=== PATIENT | male | born 1975 | race Caucasian/White ===

== ENCOUNTER 2023-08-27 12:52 | Outpatient (CLI) | payer BC, SELFPAY ==
--- NOTE | ~2023-08-27 | CT_ITS ---
CT of the Abdomen and Pelvis: Indication: Inguinal hernia Technique: 2.5 mm axial scans were obtained through the abdomen and pelvis following intravenous adm inistration of 100 cc of Omnipaque 350. Dose reduction technique was used on this scan by utilizing a utomated exposure control and iterative reconstruction technique. The dose-length product (DLP) was 7 81.29 mGy-cm. Findings: Scans through the lung bases are unremarkable. The liver, spleen, pancreas, gallbladder, adrenals and kidneys are within normal limits. No evidence of aortic aneurysm. No lymphadenopathy. No bowel obstruction or bowel wall thickening. There is no evidence to suggest acute appendicitis. Images through the pelvis were performed. Urinary bladder unremarkable. No pelvic mass seen. No ascit es. Impression: No significant abnormalities seen. Reviewed, dictated and finalized at location . [facility] Impression: No significant abnormalities seen.
== END 2023-08-27 12:53 | disposition home or self-care (01) ==
LOC: ANHIMG 12:54
PROVIDERS: PCP Family Medicine; Visit Provider Nurse Practitioner Adult Health
DX: K40.90 Unilateral inguinal hernia, without obstruction or gangrene, not specified as recurrent (principal)
CPT/HCPCS: 74177; Q9967

== ENCOUNTER 2023-09-01 01:32 | Day surgery (SDC) | payer BC, SELFPAY ==
[2023-08-03 15:06] VITALS: BMI 28.9
--- NOTE | 2023-08-30 12:01 | SUR.PREOP ---
Patient called regarding upcoming procedure. Message left on pt's vm regarding appointment times.
--- NOTE | 2023-08-31 16:16 | P.HP_ITS ---
History of Present Illness History of Present Illness Consent: Risks, benefits, and alternatives have been discussed and questions answered. Patient agrees to proceed with procedure. Chief complaint: fam hx colon ca Narrative: Arvind Escalante is a 48 year old male Referred for colon cancer screening. He has a family history of colon cancer, his father had colon cancer at age 52. Review of Systems Review of Systems: All systems reviewed & are unremarkable except as noted in HPI and below PMFSH Past Medical History Medical History BMI 29.0-29.9,adult Encounter for wellness examination Family history of colon cancer in father Inguinal hernia of left side without obstruction or gangrene Left inguinal pain Screening for lipid disorders Screening for prostate cancer Family History Family History Father Hypertension Carcinoma of colon Mother Family history of malignant neoplasm of breast in first degree relative Breast cancer Sibling No problems noted. 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 Gender identity (if verbalized by the patient): Male Spiritual care concerns: No Meds Home Medications and Allergies Home Medications Medication Instructions Recorded Confirmed Type lisinopril 20 1 tablet PO DAILY #90 tabs 06/24/23 09/01/23 Rx mg-hydrochlorothiazide 12.5 mg tablet rosuvastatin 20 mg tablet (Crestor) 20 mg PO DAILY #90 tabs 08/23/23 Rx Allergies Allergy/AdvReac Type Severity Reaction Status Date / Time No Known Allergies Allergy Verified 09/01/23 07:07 Exam Const: General: alert Orientation/consciousness: patient oriented x3 Resp: Auscultation: clear to auscultation bilaterally Cardio: Rhythm: regular rhythm GI: GI Palp: Yes Soft to palpation and No Tenderness to palpation present (GI) Neuro: General: patient oriented x3 Assessment and Plan Assessment and plan (1) Colon cancer screening: Code(s): Z12.11 - Encounter for screening for malignant neoplasm of colon Status: Acute Assessment and Plan: Colonoscopy with possible biopsy or polypectomy or cautery or injection of substances.
[2023-09-01 07:12] VITALS: BP 141/93; PULSE 78; RESP 18; TEMP 36.2; O2SAT 100
[2023-09-01] MEDS: LACTATED RINGERS 1,000 ML 150 ML IV CONT (07:23)
--- NOTE | 2023-09-01 07:43 | WPDANESEPPF ---
Anes - Initial Pre Proc Eval Procedure: Operation Date: 09/01/23 08:00 Proposed Procedures p Colonoscopy - Bienvenido Nova MD Date/Time: 09/01/23 07:43 Surgeon: Bienvenido Nova MD Pre Op Diagnosis: fam hx colon ca Patient Data Age: 48 Gender: M Height: 1.83 m Weight: 95.2 kg Last Vital Signs Temp 97.1 F L 09/01/23 07:12 Pulse 78 09/01/23 07:12 Resp 18 09/01/23 07:12 BP 141/93 H 09/01/23 07:12 Pulse Ox 100 09/01/23 07:12 O2 Del Method Room Air 09/01/23 07:12 Allergies Allergy/AdvReac Type Severity Reaction Status Date / Time No Known Allergies Allergy Verified 09/01/23 07:07 Home Medications Medication Instructions Recorded Confirmed Type lisinopril 20 1 tablet PO DAILY #90 tabs 06/24/23 09/01/23 Rx mg-hydrochlorothiazide 12.5 mg tablet rosuvastatin 20 mg tablet (Crestor) 20 mg PO DAILY #90 tabs 08/23/23 Rx Patient hx anesthesia problems: none Family hx anesthesia problems: none Results Review: All pre-operative results and documents have been reviewed as part of the pre-operative evaluation. [facility] Past Medical History Medical History BMI 29.0-29.9,adult Encounter for wellness examination Family history of colon cancer in father Inguinal hernia of left side without obstruction or gangrene Left inguinal pain Screening for lipid disorders Screening for prostate cancer Family History Family History Father Hypertension Carcinoma of colon Mother Family history of malignant neoplasm of breast in first degree relative Breast cancer Sibling No problems noted. 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 Informed Consent: The patient's anesthetic plan and its attendant risks and benefits were discussed with the patient/family/POA. Questions were solicited and answers provided to the satisfaction of the patient/family/POA.
[2023-09-01] MEDS: SIMETHICONE ORAL SUSPENSION 20 MG/0.3 ML 30 ML BOTTLE 0.6 ML IRRIGATION (08:16)
[2023-09-01 08:29] VITALS: BP 120/73; PULSE 75; RESP 18; O2SAT 98
[2023-09-01 08:39] VITALS: BP 120/78; PULSE 59; RESP 18; O2SAT 99
[2023-09-01 08:48] VITALS: BP 123/79; PULSE 71; RESP 18; O2SAT 100
== END 2023-09-01 09:00 | disposition home or self-care (01) ==
PROVIDERS: PCP Family Medicine; Visit Provider Internal Medicine Gastroenterology
PROC: 0DJD8ZZ Inspection of Lower Intestinal Tract, Via Natural or Artificial Opening Endoscopic (ICD-10-PCS; CPT 45378; principal; 2023-09-01 08:00)
DX: Z12.11 Encounter for screening for malignant neoplasm of colon (principal); K57.30 Diverticulosis of large intestine without perforation or abscess without bleeding; Z80.0 Family history of malignant neoplasm of digestive organs
CPT/HCPCS: 45378; J2001; J2704; J7120